=== PATIENT | male | born 1985 | race African-American/Black ===

== ENCOUNTER 2024-08-09 03:36 | Emergency (ER) | payer MEDICAID ==
[~2024-08-09] VITALS: Ht 188 cm; Wt 86.0 kg
[2024-08-09 03:44] VITALS: BP 146/113; PULSE 100; RESP 20; TEMP 97.5; O2SAT 98
[2024-08-09] MEDS: METOCLOPRAMIDE HCL 10MG/2ML VIAL IV STA (05:56)
[2024-08-09] MEDS: SODIUM CHLORIDE 0.9% 1,000 ML IV ONE (05:56)
[2024-08-09] MEDS: KETOROLAC 30MG/ML VIAL IV ONE (06:19)
[2024-08-09 06:23] LABS: CHLORIDE 103 mEq/L (98-107); POTASSIUM 4.8 mEq/L (3.5-5.1); SODIUM 138 mEq/L (136-145)
[2024-08-09 06:24] LABS: CARBON DIOXIDE 26 mEq/L (21-32)
[2024-08-09 06:25] LABS: CALCIUM 9.8 mg/dL (8.7-10.4)
[2024-08-09 06:29] LABS: CREATININE 0.9 mg/dL (0.6-1.3); GLUCOSE 122 mg/dL (70-105); UREA NITROGEN BLOOD 8 mg/dL (9-23)
[2024-08-09 06:31] LABS: ALANINE AMINOTRANSFERASE 18 IU/L (10-49); ALBUMIN 4.9 g/dL (3.2-4.8); ASPARTATE AMINOTRANSFERASE 31 IU/L (<34); BILIRUBIN DIRECT 0.5 mg/dL (<=3.0)
[2024-08-09 06:32] LABS: BILIRUBIN TOTAL 2.5 mg/dL (0.1-1.0); PROTEIN TOTAL 8.2 g/dL (6.0-8.3)
[2024-08-09 06:39] LABS: BASOPHILS % 0.3 % (0.0-2.0); DIFFERENTIAL COMMENT 0; EOSINOPHILS % 0.7 % (0.0-5.0); HEMATOCRIT. 49.3 % (42.0-52.0); HEMOGLOBIN. 16.9 g/dL (14.0-18.0); LYMPHOCYTES % 9.5 % (20.0-50.0); MEAN CORPUSCULAR HEMOGLOBIN 33.6 pg (28.0-32.0); MEAN CORPUSCULAR HGB CONC 34.3 g/dL (31.0-37.0); MEAN CORPUSCULAR VOLUME 98.1 fL (80.0-94.0); MEAN PLATELET VOLUME 9.4 fl (7.4-10.4); MONOCYTES % 5.5 % (2.0-8.0); PLATELET 331 x1000/uL (130-400); RED BLOOD CELL COUNT 5.03 mill/uL (4.7-6.1); RED CELL DISTRIBUTION WIDTH 13.4 % (11.6-14.6); WHITE BLOOD COUNT 16.4 x1000/uL (4.5-11.0)
[2024-08-09 06:54] LABS: INR 0.9; PROTHROMBIN TIME 10.3 sec (9.6-11.0)
[2024-08-09 08:02] LABS: CLARITY URINE TURBID (CLEAR); COLOR URINE ORANGE (YELLOW); GLUCOSE URINE NEGATIVE (NEGATIVE); KETONES URINE 3+ (NEGATIVE); LEUKOCYTE ESTERASE URINE 1+ (NEGATIVE); NITRITE URINE POSITIVE (NEGATIVE); OCCULT BLOOD URINE NEGATIVE (NEGATIVE); PH URINE 5.5 (4.5-8.0); PROTEIN URINE 2+ (NEGATIVE)
[2024-08-09 08:47] LABS: SQUAMOUS EPITHELIAL CELL URINE 1+ /lpf (RARE/1+)
[2024-08-09 08:48] LABS: AMORPHOUS SEDIMENT URINE 3+ /lpf; BACTERIA URINE 3+
[2024-08-09 08:49] LABS: MUCUS URINE 2+ /lpf (NONE/TRACE); RBC URINE NONE SEEN /hpf (0-2)
[2024-08-09] MEDS ORDERED: HYDR-4001 MT (09:08)
[2024-08-09] MEDS ORDERED: ONDA4TAB50 MT (09:08)
== END 2024-08-09 09:28 | disposition home or self-care (01) ==
LOC: ER 03:36
DX: K85.90 Acute pancreatitis without necrosis or infection, unspecified (principal); F10.20 Alcohol dependence, uncomplicated; F12.90 Cannabis use, unspecified, uncomplicated
CPT/HCPCS: 80076; 80048; 81003; 83690; 85025; 85610; 36415; 74176; 96361; 96374; 96375; 99285; J1885; J2765; J7030; Z7610 ×3

== ENCOUNTER 2024-10-08 05:31 | Emergency (ER) | payer MEDICAID ==
[~2024-10-08] VITALS: Ht 188 cm; Wt 87.0 kg
[~2024-10-08 05:31] MED LIST: HYDR-4001 MT; ONDA4TAB50 MT
[2024-10-08 05:35] VITALS: TEMP 36.9; O2SAT 99
[2024-10-08] MEDS ORDERED: DICYCLOMINE 10 MG/5 ML ORAL SYR PO STA ×2 (05:57→09:39)
[2024-10-08] MEDS: FAMOTIDINE 20MG/2ML VIAL IV STA (06:25)
[2024-10-08] MEDS: DICYCLOMINE HCL 10MG CAPSULE PO NR (06:28)
[2024-10-08] MEDS: ONDANSETRON HCL 4MG/2ML INJ IV STA (06:35)
[2024-10-08] MEDS: KETOROLAC 30MG/ML VIAL IV STA (06:35)
[2024-10-08 07:04] LABS: CHLORIDE 98 mEq/L (98-107); POTASSIUM 3.2 mEq/L (3.5-5.1); SODIUM 135 mEq/L (136-145)
[2024-10-08 07:06] LABS: BASOPHILS % 0.2 % (0.0-2.0); CARBON DIOXIDE 27 mEq/L (21-32); DIFFERENTIAL COMMENT 0; EOSINOPHILS % 0.8 % (0.0-5.0); HEMATOCRIT. 50.3 % (42.0-52.0); HEMOGLOBIN. 17.3 g/dL (14.0-18.0); LYMPHOCYTES % 10.2 % (20.0-50.0); MEAN CORPUSCULAR HEMOGLOBIN 33.1 pg (28.0-32.0); MEAN CORPUSCULAR HGB CONC 34.3 g/dL (31.0-37.0); MEAN CORPUSCULAR VOLUME 96.5 fL (80.0-94.0); MEAN PLATELET VOLUME 9.3 fl (7.4-10.4); MONOCYTES % 5.3 % (2.0-8.0); NEUTROPHILS % 83.5 % (40.0-76.0); PLATELET 257 x1000/uL (130-400); RED BLOOD CELL COUNT 5.22 mill/uL (4.7-6.1); WHITE BLOOD COUNT 11.8 x1000/uL (4.5-11.0)
[2024-10-08 07:07] LABS: CALCIUM 10.3 mg/dL (8.7-10.4); INR 0.9; PROTHROMBIN TIME 10.3 sec (9.6-11.0)
[2024-10-08 07:11] LABS: CREATININE 0.9 mg/dL (0.6-1.3)
[2024-10-08 07:12] LABS: GLUCOSE 130 mg/dL (70-105); UREA NITROGEN BLOOD 8 mg/dL (9-23)
[2024-10-08 07:13] LABS: ACETAMINOPHEN < 2 ug/mL (10-30); ALANINE AMINOTRANSFERASE 9 IU/L (10-49); ALBUMIN 4.9 g/dL (3.2-4.8); ASPARTATE AMINOTRANSFERASE 18 IU/L (<34)
[2024-10-08 07:14] LABS: BILIRUBIN DIRECT 0.4 mg/dL (<=3.0); BILIRUBIN TOTAL 1.3 mg/dL (0.1-1.0); PROTEIN TOTAL 8.3 g/dL (6.0-8.3)
[2024-10-08 08:55] LABS: CLARITY URINE CLOUDY (CLEAR); COLOR URINE ORANGE (YELLOW); GLUCOSE URINE NEGATIVE (NEGATIVE); KETONES URINE 2+ (NEGATIVE); LEUKOCYTE ESTERASE URINE TRACE (NEGATIVE); NITRITE URINE NEGATIVE (NEGATIVE); OCCULT BLOOD URINE NEGATIVE (NEGATIVE); PH URINE 5.5 (4.5-8.0); PROTEIN URINE 2+ (NEGATIVE); SPECIFIC GRAVITY URINE 1.034 (1.005-1.030)
[2024-10-08 09:15] LABS: BACTERIA URINE FEW; MUCUS URINE 2+ /lpf (NONE/TRACE); RBC URINE NONE SEEN /hpf (0-2); SQUAMOUS EPITHELIAL CELL URINE 2+ /lpf (RARE/1+); YEAST URINE NONE SEEN
[2024-10-08] MEDS ORDERED: ONDA4TAB50 PO (09:42)
[2024-10-08] MEDS ORDERED: TOPUD PO (09:42)
[2024-10-08] MEDS: MAGNESIUM/ALUMINUM HYDROXIDE/SIMETHICONE 30ML UDC PO STA (10:00)
[2024-10-08 10:03] VITALS: BP 136/90; PULSE 82; RESP 12; O2SAT 100
== END 2024-10-08 10:04 | disposition home or self-care (01) ==
LOC: ER 05:31
DX: R10.9 Unspecified abdominal pain (principal); Z87.19 Personal history of other diseases of the digestive system; Z79.899 Other long term (current) drug therapy
CPT/HCPCS: 80076; 80048; 81003; 80307; 83690; 85025; 85610; 36415; 76705; 96374; 96375; 99285; J3490; J1885; J2405; Z7610; A4606